=== PATIENT | female | born 1945 | race Caucasian/White ===

== ENCOUNTER → 2018-04-05 | Outpatient (CLI) | payer OTHER ==
[~2018-04-05] MED LIST: ACYCLOVIR400 MG PO; DIOVAN HCT 3201 EAC1 PO; INDERAL LA120 M1 PO; TRIFLURIDINE OP; VALTREX1000 MG PO
== END | disposition home or self-care (01) ==
LOC: MAMMO 00:54
DX: Z12.31 Encounter for screening mammogram for malignant neoplasm of breast (principal); Z13.820 Encounter for screening for osteoporosis; Z78.0 Asymptomatic menopausal state; Z85.048 Personal history of other malignant neoplasm of rectum, rectosigmoid junction, and anus

== ENCOUNTER → 2018-04-19 | Day surgery (SDC) | payer OTHER ==
[~2018-04-19] VITALS: Ht 167.6 cm; Wt 90.7 kg
--- NOTE | ~2018-04-19 | PROC NOTE ---
[place], [place] PROCEDURE NOTE NAME: OTF TIPTON UNIT #: [id number] ROOM: DOCTOR: WILFRED THORNE MD BIRTHDATE: [birth year] DOS: 04/19/2018 PREOPERATIVE DIAGNOSIS: History of rectal cancer, screening examination. POSTOPERATIVE DIAGNOSIS: Colon polyp (75 cm from the anal verge). PROCEDURE: Colonoscopy with polypectomy x 1. ENDOSCOPIST: Wilfred Thorne M.D. [employer]ARCH [employer]: [facility]. ANESTHESIA: MAC. INDICATIONS: This is a 73-year-old lady with a previous history of rectal cancer approximately 15 years ago who is here for a screening examination. The procedure and its complications were explained to the patient in detail preoperatively. Complications that were discussed included, but were not limited to, bleeding, colon perforation and missed lesion. She agreed to proceed. DESCRIPTION OF PROCEDURE: After identifying the patient, the patient was brought to the endoscopy suite and placed in the left lateral position. After IV sedation was administered, a timeout procedure was called. A digital rectal exam was performed, which was within normal limits. An adult colonoscope was now introduced into the anal canal and advanced sequentially into the rectum, descending colon, transverse colon, ascending colon up to the cecum. Upon reaching the cecum, the scope was withdrawn. Total withdrawal time was approximately 7 minutes, at approximately 75 cm from the anal verge, a single polyp was identified, which was removed in a piecemeal fashion and sent for histopathological diagnosis. After hemostasis was confirmed, the scope was withdrawn. There were no other polyps that were visualized. The area of the anastomosis for the rectal cancer was visualized completely and was found within normal limits with no evidence of stricture or recurrence. After the scope was withdrawn, the patient was brought back to the recovery room in stable fashion. There were no complications. Based on this finding, the patient is recommended to have another colonoscopy in 3-5 years or sooner if she had new symptoms. These findings were discussed with the patient's in the recovery room. [place], [place] PROCEDURE NOTE NAME: OTF TIPTON UNIT #: [id number] ROOM: DOCTOR: WILFRED THORNE MD BIRTHDATE: [birth year] Wilfred Thorne MD CM:PACO:PROCEDURE NOTE [id number] WILFRED THORNE MD
[2018-04-19 06:45] VITALS: BP 179/94
[2018-04-19 07:34] VITALS: BP 115/70
[2018-04-19 07:49] VITALS: BP 166/82
[2018-04-19 08:05] VITALS: BP 166/81
== END | disposition home or self-care (01) ==
LOC: SDC 04-16 11:00
DX: Z12.11 Encounter for screening for malignant neoplasm of colon (principal); D12.9 Benign neoplasm of anus and anal canal; I10 Essential (primary) hypertension; Z85.048 Personal history of other malignant neoplasm of rectum, rectosigmoid junction, and anus; Z98.890 Other specified postprocedural states; Z93.3 Colostomy status; Z88.1 Allergy status to other antibiotic agents; Z88.2 Allergy status to sulfonamides; Z79.82 Long term (current) use of aspirin; Z79.899 Other long term (current) drug therapy; Z98.42 Cataract extraction status, left eye; Z98.41 Cataract extraction status, right eye; Z83.3 Family history of diabetes mellitus

== ENCOUNTER → 2021-01-13 | Outpatient (CLI) | payer MEDICARE | END | disposition home or self-care (01) | LOC: MAMMO 01-05 16:30 | PROVIDERS: ATTEND Physician Assistant | DX: Z12.31 Encounter for screening mammogram for malignant neoplasm of breast (principal) ==

== ENCOUNTER → 2021-12-09 | Day surgery (SDC) | payer MEDICARE ==
[~2021-12-09] VITALS: Ht 167.6 cm; Wt 72.6 kg
[~2021-12-09] MED LIST changes: +HYDROCHLOROTH12.5 M3 PO; +PERCOCET 5-3251 EACH PO
[2021-12-09 09:06] VITALS: BP 160/99
[2021-12-09 10:12] VITALS: BP 181/85
[2021-12-09 10:27] VITALS: BP 187/76
[2021-12-09 10:42] VITALS: BP 187/76
== END | disposition home or self-care (01) ==
LOC: SDC 12-06 10:15
PROVIDERS: ATTEND Surgery
DX: L72.0 Epidermal cyst (principal); L92.8 Other granulomatous disorders of the skin and subcutaneous tissue; I10 Essential (primary) hypertension; Z85.048 Personal history of other malignant neoplasm of rectum, rectosigmoid junction, and anus; Z98.890 Other specified postprocedural states; Z79.899 Other long term (current) drug therapy

== ENCOUNTER → 2023-09-01 | Outpatient (CLI) | payer MEDICARE | END | disposition home or self-care (01) | LOC: RAD 06-09 10:30 | PROVIDERS: ATTEND Physician Assistant | DX: M81.0 Age-related osteoporosis without current pathological fracture (principal); M85.80 Other specified disorders of bone density and structure, unspecified site ==